=== PATIENT | female | born 1965 | race Two or more races ===

== ENCOUNTER 2019-12-31 06:00 | Day surgery (SDC) | payer OTHER ==
[~2019-12-31 06:00] MED LIST: BACLOFEN20 MG PO; CARAFATE1 GM PO; COZAAR100 MG PO; HYDROCHLOROTHIA25 MG PO; SIMVASTATIN PO; SINGULAIR10 MG PO; XANAX XR1 MG PO
== END 2019-12-31 15:00 | disposition home or self-care (01) ==
LOC: CIR.AMB 06:00
PROVIDERS: ATTEND Colon & Rectal Surgery
DX: K64.4 Residual hemorrhoidal skin tags (principal); K64.8 Other hemorrhoids